=== PATIENT | male | born 1980 ===

== ENCOUNTER 2019-09-05 10:57 | Emergency (ER) | payer OTHER ==
[~2019-09-05] VITALS: Ht 175.3 cm; Wt 71.7 kg
[2019-09-05] MEDS ORDERED: TESSALON PERLE100 M1 PO (16:11)
[2019-09-05] MEDS ORDERED: MUCINEX DM ER1 EAC1 PO (16:11)
== END 2019-09-05 17:13 | disposition home or self-care (01) ==
LOC: ER 10:57
DX: R05 Cough (principal)

== ENCOUNTER 2019-10-04 15:04 | Emergency (ER) | payer OTHER ==
[~2019-10-04] VITALS: Ht 175.3 cm; Wt 72.6 kg
[~2019-10-04 15:04] MED LIST: MUCINEX DM ER1 EAC1 PO; TESSALON PERLE100 M1 PO
== END 2019-10-04 16:28 | disposition home or self-care (01) ==
LOC: ER 15:04
DX: J06.9 Acute upper respiratory infection, unspecified (principal)

== ENCOUNTER 2020-01-09 13:42 | Emergency (ER) | payer OTHER ==
[~2020-01-09] VITALS: Ht 175.3 cm; Wt 73.0 kg
[2020-01-09] MEDS ORDERED: KETO10TA2 PO (18:06)
[2020-01-09] MEDS ORDERED: ORPHENADRINE C100 MG PO (18:06)
== END 2020-01-09 19:29 | disposition home or self-care (01) ==
LOC: ER 13:42
DX: M62.830 Muscle spasm of back (principal); M54.2 Cervicalgia